=== PATIENT | female | born 1995 | race American Indian/Alaskan Native ===

== ENCOUNTER 2019-11-29 14:33 | Outpatient (CLI) | payer MEDICAID ==
[2019-11-29 15:04] VITALS: BP 110/66
[2019-11-29] MEDS ORDERED: LACTATED RINGERS 1,000 ML IV SCH (16:00)
[2019-11-29 16:02] LABS: Bilirubin,Urine NEG (Negative); Blood,Urine NEG (Negative); Color,Urine Yellow (Yellow); Mucus,Urine 2+ /HPF; Protein,Urine <15 mg/dL mg/dL (Negative); Urobilinogen,Urine < 2.0 mg/dL (<2.0)
[2019-11-29 17:49] LABS: Amphetamine Screen,Urine PRESUMPTIVE NEGATIVE; Benzodiazepines Screen,Urine PRESUMPTIVE NEGATIVE; Cannabinoid Screen,Urine PRESUMPTIVE NEGATIVE; Cocaine Screen,Urine PRESUMPTIVE NEGATIVE; Methadone Screen,Urine PRESUMPTIVE NEGATIVE; Opiate Screen,Urine PRESUMPTIVE NEGATIVE
== END 2019-11-29 17:58 | disposition home or self-care (01) ==
LOC: TRG 14:33 → APU 14:33 → LD 14:33 → APU 14:34 → TRG 17:58
PROVIDERS: ATTEND Obstetrics & Gynecology
DX: O26.893 Other specified pregnancy related conditions, third trimester (principal); O21.2 Late vomiting of pregnancy; O47.03 False labor before 37 completed weeks of gestation, third trimester; O99.513 Diseases of the respiratory system complicating pregnancy, third trimester; J45.909 Unspecified asthma, uncomplicated; Z3A.29 29 weeks gestation of pregnancy
CPT/HCPCS: 59025; 80307; 81001; 96360; 96361; J7120

== ENCOUNTER 2021-02-09 19:16 | Emergency (ER) | payer MEDICAID ==
[2021-02-09 20:05] VITALS: BP 125/80
== END 2021-02-09 20:10 | disposition left against medical advice (07) ==
LOC: ED 19:16
DX: M54.2 Cervicalgia (principal); R10.9 Unspecified abdominal pain; Z53.21 Procedure and treatment not carried out due to patient leaving prior to being seen by health care provider

== ENCOUNTER 2021-08-23 17:37 | Outpatient (CLI) | payer MEDICAID ==
[2021-08-23 18:35] LABS: Bilirubin,Urine NEG (Negative); Blood,Urine NEG (Negative); Color,Urine Yellow (Yellow); Mucus,Urine 3+ /HPF
[2021-08-23 19:13] VITALS: BP 110/58
[2021-08-23] MEDS ORDERED: LACTATED RINGERS 1,000 ML IV ONE (19:21)
[2021-08-23 19:35] LABS: Hematocrit 31.9 % (30.3-42.9); Mean Corpuscular HGB Conc 35 % (30-34); Mean Corpuscular Volume 94 fl (79-97); Platelet Count 178 K/mm3 (140-440); Red Cell Distribution Width 13.5 % (13.2-15.2)
[2021-08-23 19:59] LABS: Alanine Aminotransferase 8 units/L (7-56); Albumin 3.9 g/dL (3.9-5); Blood Urea Nitrogen 6 mg/dL (7-17); Calcium 8.5 mg/dL (8.4-10.2); Hemolysis Index 16
[2021-08-23 20:13] LABS: BUN/Creatinine Ratio 15
== END 2021-08-23 22:51 | disposition left against medical advice (07) ==
LOC: TRG 17:37 → APU 17:38 → TRG 22:51
PROVIDERS: ATTEND Obstetrics & Gynecology
DX: Z34.92 Encounter for supervision of normal pregnancy, unspecified, second trimester (principal); Z3A.20 20 weeks gestation of pregnancy
CPT/HCPCS: 36415; 80053; 81001; 85027; 87086; J7120

== ENCOUNTER 2021-12-22 06:27 | Outpatient (CLI) | payer MEDICAID ==
[2021-12-22 06:52] VITALS: BP 116/81
[2021-12-22] MEDS ORDERED: LACTATED RINGERS 1,000 ML IV ONE (06:56)
[2021-12-22 08:02] LABS: Basophils % (Auto) 0.2 % (0.0-1.8); Eosinophils % (Auto) 0.5 % (0.0-4.3); Hematocrit 31.5 % (30.3-42.9); Hemoglobin 11.1 gm/dl (10.1-14.3); Lymphocytes # (Auto) 1.7 K/mm3 (1.2-5.4); Lymphocytes % (Auto) 24.1 % (13.4-35.0); Mean Corpuscular HGB Conc 35 % (30-34); Mean Corpuscular Volume 93 fl (79-97); Monocytes # (Auto) 0.6 K/mm3 (0.0-0.8); Monocytes % (Auto) 8.1 % (0.0-7.3); Platelet Count 140 K/mm3 (140-440); Red Cell Distribution Width 12.6 % (13.2-15.2)
[2021-12-22 08:16] LABS: Alanine Aminotransferase 9 units/L (7-56); Albumin 3.8 g/dL (3.9-5); Blood Urea Nitrogen 4 mg/dL (7-17); Calcium 8.7 mg/dL (8.4-10.2); Hemolysis Index 78
[2021-12-22 08:19] LABS: BUN/Creatinine Ratio 13
[2021-12-22 08:27] LABS: Bilirubin,Urine NEG (Negative); Blood,Urine NEG (Negative); Color,Urine Yellow (Yellow); Mucus,Urine FEW /HPF; Protein,Urine <15 mg/dL mg/dL (Negative); Urobilinogen,Urine < 2.0 mg/dL (<2.0)
== END 2021-12-22 10:10 | disposition home or self-care (01) ==
LOC: TRG 06:27 → APU 06:29 → TRG 10:10
PROVIDERS: ATTEND Obstetrics & Gynecology
DX: O62.9 Abnormality of forces of labor, unspecified (principal); O21.2 Late vomiting of pregnancy; O26.893 Other specified pregnancy related conditions, third trimester; R42 Dizziness and giddiness; O99.513 Diseases of the respiratory system complicating pregnancy, third trimester; J45.909 Unspecified asthma, uncomplicated; Z3A.38 38 weeks gestation of pregnancy
CPT/HCPCS: 36415; 59025; 80053; 81001; 85025; 96360; J7120

== ENCOUNTER 2022-01-02 11:48 | Inpatient (IN) | payer MEDICAID ==
[2022-01-02 14:13] LABS: Basophils % (Auto) 0.2 % (0.0-1.8); Eosinophils % (Auto) 0.5 % (0.0-4.3); Hematocrit 33.9 % (30.3-42.9); Hemoglobin 11.3 gm/dl (10.1-14.3); Lymphocytes # (Auto) 1.4 K/mm3 (1.2-5.4); Lymphocytes % (Auto) 18.3 % (13.4-35.0); Mean Corpuscular HGB Conc 33 % (30-34); Mean Corpuscular Volume 93 fl (79-97); Monocytes # (Auto) 0.6 K/mm3 (0.0-0.8); Monocytes % (Auto) 7.8 % (0.0-7.3); Platelet Count 153 K/mm3 (140-440); Red Blood Count 3.65 M/mm3 (3.65-5.03); Red Cell Distribution Width 12.9 % (13.2-15.2)
[2022-01-02] MEDS ORDERED: LACTATED RINGERS 1,000 ML IV SCH (14:15)
[2022-01-02] MEDS ORDERED: OXYTOCIN 10 UNIT/1 ML INJ IM PRN (14:59)
[2022-01-02] MEDS ORDERED: NalbUPHINE 10 MG/1 ML INJ IV PRN (14:59)
[2022-01-02] MEDS ORDERED: TERBUTALINE 1 MG/1 ML INJ SUB-Q PRN (14:59)
[2022-01-02] MEDS ORDERED: ONDANSETRON 4 MG/2 ML INJ IV PRN (14:59)
[2022-01-02] MEDS ORDERED: miSOPROStol 200 MCG TAB PR PRN (14:59)
[2022-01-02] MEDS ORDERED: MINERAL OIL 30 ML ORAL LIQD PO PRN (14:59)
[2022-01-02] MEDS ORDERED: LOPERAMIDE 2 MG CAP PO PRN (14:59)
[2022-01-02] MEDS ORDERED: PROMETHAZINE 25 MG RECT SUPP PR PRN (14:59)
[2022-01-02] MEDS ORDERED: CARBOPROST TROMETHAMINE 250 MCG/1 ML INJ IM PRN (14:59)
[2022-01-02] MEDS ORDERED: ePHEDrine SULFATE 50 MG/1 ML INJ IV PRN (14:59)
[2022-01-02] MEDS ORDERED: fentaNYL 100 MCG/2 ML INJ IV PRN (14:59)
[2022-01-02] MEDS ORDERED: LIDOCAINE (2%) 20 MG/1 ML VIAL 20 ML MDV INFILTRATI ONE (14:59)
[2022-01-02] MEDS ORDERED: METHYLERGONOVINE MALEATE 0.2 MG/ML VIAL IM PRN (14:59)
[2022-01-02] MEDS ORDERED: ACETAMINOPHEN 325 MG TAB PO PRN (14:59)
[2022-01-02] MEDS ORDERED: OXYTOCIN DRIP 30 UNITS/500 ML BAG IV SCH ×2 (15:00)
--- NOTE | 2022-01-02 15:04 | History and Physical Report ---
History of Present Illness Date of examination: 01/02/22 Date of admission: 01/02/22 11:48 Chief complaint: scheduled augmentation of labor History of present illness: at 40.2wks by U/S with unsure LMP. care with [facility] and same started at 22wks. Pt here for augmentation of labor with intermittent contractions. Pt admits to movement, denies LOF or vag bleed or headache. pt desires epidural for pain relief. labs with B+ blood type, neg antibody screen, Rubella immune, HepBsAg neg and normal 3hrgtt (abnormal 1hr). GBS negative. Pt was seen by [facility] for insufficient care and records show Angelman Syndrome in FOB's child and confirmed EDC 12/30/21 with sub-optimal anatomy scan due to late gestational age. Pt was scanned by them on 12/12/21, 37wk and 3days and wt estimated to be 7lbs 3oz at that time). Past History Past Medical History: other (Bilateral carpal tunnel syndrome) Past Surgical History: no surgical history Social history: no significant social history - Obstetrical History Expected Date of Delivery: 12/31/21 Actual Gestation: 40 Week(s) 2 Day(s) : 3 Spontaneous Abortions: 1 Number of Living Children: 1 Medications and Allergies Allergies Allergy/AdvReac Type Severity Reaction Status Date / Time Latex, Natural Rubber AdvReac Severe Anaphylaxis Verified 08/23/21 18:19 Home Medications Medication Instructions Recorded Confirmed Last Taken Type Acetaminophen/Codeine [Tylenol #3] 1 tab PO Q6H PRN #10 tab 11/11/15 Unknown Rx Nitrofurantoin [place]/M-Cryst 100 mg PO Q12HR #14 capsule 11/11/15 Unknown Rx [Macrobid CAP] Active Meds: Active Medications Carboprost Tromethamine (Carboprost Tromethamine 250 Mcg/1 Ml Inj) 250 mcg IM ONCE PRN PRN Reason: Uterine Bleeding Ephedrine Sulfate (Ephedrine Sulfate 50 Mg/1 Ml Inj) 10 mg IV Q2M PRN PRN Reason: Hypotension Lactated Ringer's (Lactated Ringers) 1,000 mls @ 125 mls/hr IV DIRECT LUCY Oxytocin/Sodium Chloride (Pitocin/Ns 30 Unit/500ml) 30 units in 500 mls @ 2 mls/hr IV TITR LUCY; Protocol Lactated Ringer's (Lactated Ringers) 1,000 mls @ 125 mls/hr IV DIRECT LUCY Oxytocin/Sodium Chloride (Pitocin/Ns 30 Unit/500ml) 30 units in 500 mls @ 40 mls/hr IV TITR LUCY; Protocol Lidocaine (Lidocaine (2%) 20 Mg/1 Ml Vial 20 Ml Mdv) 20 ml INFILTRATI ONCE ONE Stop: 01/02/22 15:00 Mineral Oil (Mineral Oil 30 Ml Oral Liqd) 30 ml PO QHS PRN PRN Reason: Constipation Oxytocin (Oxytocin 10 Unit/1 Ml Inj) 10 unit IM ONCE PRN PRN Reason: Uterine Bleeding Terbutaline Sulfate (Terbutaline 1 Mg/1 Ml Inj) 0.25 mg SUB-Q ONCE PRN PRN Reason: Hyperstimulation/Hypertonicity Review of Systems All systems: negative (ctx) - Vital Signs Vital signs: Vital Signs Pulse BP 100 H 121/68 01/02/22 12:31 01/02/22 12:31 Temp Pulse Resp BP Pulse Ox 98.2 F 98 H 16 121/68 98 01/02/22 12:44 01/02/22 14:57 01/02/22 12:44 01/02/22 12:44 01/02/22 14:57 - Physical Exam Breasts: Positive: deferred Cardiovascular: Regular rate Lungs: Positive: Normal air movement Abdomen: Positive: soft Genitourinary (Female): Positive: normal external genitalia Vagina: Positive: normal moisture Uterus: Positive: enlarged (non-tender, gravid) Extremities: Positive: normal - Obstetrical FHR: category 1 Uterine Contraction Monitor Mode: External Cervical Dilatation: 5 (3cm in the clinic on 12/31/21) Cervical Effacement Percentage: 70 station: -2 Results Result Diagrams: 01/02/22 13:34 Abnormal lab results 01/02/22 Range/Units 13:34 RDW 12.9 L (13.2-15.2) % [place] % (Auto) 7.8 H (0.0-7.3) % Seg Neutrophils % 73.2 H (40.0-70.0) % All other labs normal. Assessment and Plan Term preg, in latent labor, GBS negative and late care 1. Augment with pitocin 2. Epidural when desired and IV pain med now 3. Discussed plan of care and pt accepts. Expect
--- NOTE | 2022-01-03 00:13 | Ultrasound Report ---
ULTRASOUND OBSTETRIC COMPLETE INDICATION / CLINICAL INFORMATION: Contractions, abdominal pain. Clinical Gestational Age (GA) in weeks, days: 40 weeks 3 days TECHNIQUE: Transabdominal. COMPARISON: None available. FINDINGS: NUMBER: Single PRESENTATION: cephalic MATERNAL ADNEXA: No significant abnormality. AMNIOTIC FLUID VOLUME: normal AMNIOTIC FLUID INDEX (AYDE) in cm (if measured): 10.7 MEASUREMENTS: - Biparietal Diameter = 9.7 cm = 39.3 - Head Circumference = 34.5 cm = 39.6 - Abdominal Circumference = 34.2 cm = 38.1 - Femur Length = 7.3 cm = 37.3 - Estimated Weight (in grams, if calculated): 3460 - Heart Rate (beats per minute): 139 ADDITIONAL FINDINGS: None. PERCENTILE ESTIMATED WEIGHT (if calculated): 31 AVERAGE ULTRASOUND AGE (AUA) in weeks, days = 38 weeks 5 days IMPRESSION: 1. Single intrauterine with AUA of 38 weeks 5 days. 2. Estimated weight of 3460 g. 3. Amniotic fluid index within normal limits, measuring 10.7 cm. Signer Name: Hema Arredondo MD Signed: 01/03/2022 12:08 AM Workstation Name: [id number]
[2022-01-03] MEDS: LACTATED RINGERS 1,000 ML IV SCH ×2 (01:00→03:05)
[2022-01-03] MEDS ORDERED: NalbUPHINE 10 MG/1 ML INJ IV PRN (02:32)
[2022-01-03] MEDS ORDERED: LACTATED RINGERS 250 ML IV SOLN IV ONE (02:32)
[2022-01-03] MEDS ORDERED: ONDANSETRON 4 MG/2 ML INJ IV PRN ×2 (02:32→08:58)
[2022-01-03] MEDS ORDERED: NALOXONE 2 MG/2 ML INJ IV PRN (02:32)
[2022-01-03] MEDS ORDERED: diphenhydrAMINE 50 MG/ML VIAL IV PRN (03:00)
[2022-01-03] MEDS ORDERED: fentaNYL-BUPIV 2 MCG/ML-0.125% 200 MCG/100 ML BAG EPIDURAL SCH (03:00)
--- NOTE | 2022-01-03 03:03 | Anesthesia Consultation ---
Anesthesia Consult and Med Hx Date of service: 01/03/22 - Airway Anesthetic Teeth Evaluation: Good ROM Head & Neck: Adequate Mental/Hyoid Distance: Adequate Mallampati Class: Class II Intubation Access Assessment: Probably Good - Pulmonary Exam CTA: Yes - Cardiac Exam Cardiac Exam: RRR - Pre-Operative Health Status ASA Pre-Surgery Classification: ASA2 Proposed Anesthetic Plan: Epidural - Pulmonary Hx Smoking: Yes (marijuana prior to ) Hx Asthma: Yes (last attack as a child) Hx Pneumonia: No Hx Sleep Apnea: No - Cardiovascular System Hx Hypertension: No Hx Heart Attack/AMI: No Hx Angina: No - Central Nervous System Hx Neuromuscular Disorder: No Hx Seizures: No Hx Psychiatric Problems: No - Gastrointestinal Hx Gastroesophageal Reflux Disease: No - Endocrine Hx Renal Disease: No Hx Liver Disease: No Hx Insulin Dependent Diabetes: No Hx Non-Insulin Dependent Diabetes: No Hx Hypothyroidism: No Hx Hyperthyroidism: No - Hematic Hx Anemia: No Hx Sickle Cell Disease: No - Other Systems Hx Alcohol Use: No Hx Substance Use: No
--- NOTE | 2022-01-03 03:04 | Progress Note ---
Labor Epidural - Labor Epidural Start Time: 02:43 Stop Time: 02:56 Performed by:: STANISLAV DOUGLAS Procedure: Patient is requesting epidural for labor and pain. H&P, labs were reviewed. Patient IDed, all questions and concerns were answered, and consent was signed. Timeout was performed at bedside. Patient in sitting position. Sterile prep and drape was performed. 3ml of 1% lidocaine skin wheal at L[3]- L [4]. 17- gauge Tuohy epidural needle was advanced to loss of resistance with air technique 7cm. Negative CSF negative blood. Epidural catheter advanced to [12] centimeters. [negative] Aspiration [negative] test dose. Sterile dressing applied. Patient tolerated procedure.
[2022-01-03] MEDS: ePHEDrine SULFATE 50 MG/1 ML INJ IV PRN ×2 (03:35→03:55)
[2022-01-03] MEDS ORDERED: WITCH HAZEL/ GLYCERIN PAD TP PRN (08:58)
[2022-01-03] MEDS ORDERED: PROMETHAZINE 25 MG TAB PO PRN (08:58)
[2022-01-03] MEDS ORDERED: LANOLIN/ZINC/DIMETHICONE (LANSINOH) 7 GM TP PRN (08:58)
[2022-01-03] MEDS ORDERED: PROMETHAZINE 25 MG RECT SUPP PR PRN (08:58)
[2022-01-03] MEDS ORDERED: MAGNESIUM HYDROXIDE (MOM) ORAL LIQD UDC PO PRN (08:58)
[2022-01-03] MEDS ORDERED: diphenhydrAMINE 25 MG CAP PO PRN (08:58)
[2022-01-03] MEDS ORDERED: ACETAMINOPHEN W/CODEINE 300-30 MG TAB PO PRN (09:01)
[2022-01-03] MEDS: IBUPROFEN 800 MG TAB PO PRN ×2 (12:23→18:50)
[2022-01-03] MEDS: NITROFURANTOIN MONOHYD/M-CRYST 100 MG CAP PO SCH ×2 (12:23→23:29)
--- NOTE | 2022-01-03 14:15 | Post Anesthesia Evaluation ---
- Post Anesthesia Evaluation Patient Participated: Yes Airway Patent: Yes Stable Respiratory Function: Yes Nausea/Vomiting: No Temp > 96.8F: Yes Pain Manageable: Yes Adequeate Hydration: Yes Anesthesia Complications: No Block Receding Appropriately: Yes Patient on Ventilator: No
--- NOTE | 2022-01-04 01:23 | Procedure Note ---
OB Delivery Note - Delivery Date of Delivery: 01/03/22 Surgeon: NEERU DOE Tunnel Miner: POLI MCCLURE Estimated blood loss: 100cc - Vaginal Delivery presentation: vertex Delivery position: OA Delivery augmentation: rupture of membranes, pitocin Delivery monitor: external FHT, external uterine Route of delivery: Delivery placenta: spontaneous Delivery cord: nuchal cord (Loose nuchal cord x1. Manually reduced.) Episiotomy: none Delivery laceration: none Anesthesia: epidural Delivery comments: Patient presents to labor and delivery for augmentation of latent labor. Ultimately, she progressed to complete dilation and 100% effacement. She produced a liveborn male infant. Delivery was uncomplicated. She was taken the unit upon stabilization. - Infant A at 1 minute: 8 at 5 minutes: 9 Gender: Male
[2022-01-04] MEDS: IBUPROFEN 800 MG TAB PO PRN ×2 (04:46→10:57)
[2022-01-04 08:17] VITALS: BP 107/54
[2022-01-04 08:41] LABS: Basophils % (Auto) 0.2 % (0.0-1.8); Eosinophils # (Auto) 0.1 K/mm3 (0.0-0.4); Eosinophils % (Auto) 1.1 % (0.0-4.3); Hematocrit 30.4 % (30.3-42.9); Hemoglobin 10.7 gm/dl (10.1-14.3); Lymphocytes # (Auto) 2.1 K/mm3 (1.2-5.4); Lymphocytes % (Auto) 22.8 % (13.4-35.0); Mean Corpuscular HGB Conc 35 % (30-34); Mean Corpuscular Volume 93 fl (79-97); Monocytes # (Auto) 0.5 K/mm3 (0.0-0.8); Monocytes % (Auto) 5.9 % (0.0-7.3); Platelet Count 140 K/mm3 (140-440); Red Blood Count 3.28 M/mm3 (3.65-5.03)
--- NOTE | 2022-01-04 10:21 | Progress Note ---
Assessment and Plan A: day 1 S/P . Anemia. P: Supplement with oral iron. Continue routine care. Anticipate discharge home tomorrow if patient continues to do well. Subjective - Subjective Date of service: 01/04/22 Principal diagnosis: day 1 S/P Patient reports: appetite normal, voiding normally, flatus, ambulating normally, no dizzy ambulation, no nauseated [place]: doing well Objective - Vital Signs Latest vital signs: Vital Signs Temp Pulse Resp BP BP Pulse Ox Pulse Ox 01/04/22 07:36 98.1 F 73 22 107/54 93 01/04/22 00:09 98.1 F 20 107/82 01/03/22 20:45 100 01/03/22 20:38 97.8 F 72 18 122/56 100 01/03/22 15:58 97.6 F 56 L 18 113/57 98 01/03/22 11:00 98.0 F 16 106/50 97 99 01/03/22 10:30 55 L 113/56 Intake and Output 01/03/22 01/04/22 01/04/22 23:59 07:59 15:59 Intake Total 1800 240 Output Total 550 Balance 1250 240 Intake: Oral 960 240 Intake, Free Water 840 Output: Urine 550 Void 550 Other: Total, Intake Amount 480 240 Total, Output Amount 550 # Voids Void 3 - Exam Cardiovascular: Present: Regular rate Lungs: Present: Clear to auscultation Abdomen: Present: normal appearance, soft. Absent: distention, tenderness, guarding, rigidity Uterus: Present: normal, firm, fundal height below umbilicus. Absent: bogginess, tenderness Extremities: Absent: tenderness, edema - Labs Labs: Abnormal lab results 01/04/22 Range/Units 08:02 RBC 3.28 L (3.65-5.03) M/mm3 MCH 33 H (28-32) pg MCHC 35 H (30-34) % RDW 13.0 L (13.2-15.2) %
--- NOTE | 2022-01-04 13:38 | Event Note ---
Date: 01/04/22 Patient requests discharge home today as baby is being discharged. Discussed with patient discharge instructions and warning signs. Advised patient to continue taking her vitamin and iron supplements at home. Advised patient to avoid intercourse, lifting, housework. Advised patient to follow up at [facility] office in 2 weeks. Patient voiced understanding of all instructions.
--- NOTE | 2022-01-04 13:41 | Discharge Summary ---
Providers - Providers Date of Admission: 01/02/22 11:48 Date of discharge: 01/04/22 Attending physician: JENNIFER MADRIGAL Primary care physician: JENNIFER MADRIGAL Hospitalization Reason for admission: other (labor augmentation) Delivery: Episiotomy: none Laceration: none Other procedures: none complications: none Discharge diagnosis: IUP at term delivered [place] baby: male Pertinent studies: Labs Hospital course: Stable hospital course Condition at discharge: Good Disposition: 01 HOME / SELF CARE / HOMELESS - Discharge Diagnoses (1) Term delivered Status: Acute (2) Anemia Status: Acute Plan - Provider Discharge Summary Activity: routine, no sex for 6 weeks, no heavy lifting 4 weeks, no strenuous exercise Diet: routine Instructions: routine Additional instructions: Continue taking your vitamin and iron supplements at home. Follow up at [facility] in 2 weeks. Call your doctor immediately for: * Fever > 100.5 * Heavy vaginal bleeding ( >1 pad per hour) * Severe persistent headache * Shortness of breath * Reddened, hot, painful area to leg or breast - Follow up plan Follow up: JENNIFER MADRIGAL MD [Primary Care Provider] - 14 Days
[2022-01-04] MEDS ORDERED: FERROUS SULFATE 325 MG TAB PO SCH (14:00)
== END 2022-01-04 14:07 | disposition home or self-care (01) | DRG 775 ==
LOC: LD 11:48 → OB 01-03 10:52
PROVIDERS: ADMIT Obstetrics & Gynecology; ATTEND Obstetrics & Gynecology
PROC: 10E0XZZ Delivery of Products of Conception, External Approach (ICD-10-PCS; principal; 2022-01-03)
PROC: 3E0R3BZ Introduction of Anesthetic Agent into Spinal Canal, Percutaneous Approach (ICD-10-PCS; 2022-01-03)
PROC: 00HU33Z Insertion of Infusion Device into Spinal Canal, Percutaneous Approach (ICD-10-PCS; 2022-01-03)
DX: O69.81X0 Labor and delivery complicated by cord around neck, without compression, not applicable or unspecified (principal); Z3A.40 40 weeks gestation of pregnancy; Z20.822 Contact with and (suspected) exposure to COVID-19; Z37.0 Single live birth; O99.52 Diseases of the respiratory system complicating childbirth; J45.909 Unspecified asthma, uncomplicated; O90.81 Anemia of the puerperium; Z91.040 Latex allergy status; Z88.8 Allergy status to other drugs, medicaments and biological substances
CPT/HCPCS: 36415; 59025; 76816; 85025; 86592; 86850; 86900; 86901; 96360; 99211; G0378; J3490; G0463; J2590; J3010; J7120; U0003